=== PATIENT | male | born 1995 | race African-American/Black ===

== ENCOUNTER 2017-06-28 13:53 | Observation (INO) | payer OTHER ==
[~2017-06-28 13:53] MED LIST: LACTATED RINGER'S 1000 ML INJ 1,000 ML IV ONE; NEOSTIGMINE 3 MG/3 ML SYR IV ONE; ONDANSETRON HCL 4 MG/2 ML VIAL IV PUSH ONE; PROPOFOL 200 MG/20 ML AMP IV ONE; ePHEDrine/NS 25 MG/5 ML SYR IV ONE
[2017-06-28 13:55] VITALS: O2SAT 100
[2017-06-28] MEDS ORDERED: ceFAZolin 2 GM PREMIX 50 ML ONE (13:59)
[2017-06-28] MEDS ORDERED: DIPHTH/TETANUS/ACEL PERTUSSIS (BOOSTER) 0.5 ML VIAL/PFS IM ONE (13:59)
[2017-06-28] MEDS ORDERED: HYDROmorphone HCL PF 1 MG/ML VIAL IVP PRN (14:15)
[2017-06-28] MEDS ORDERED: SODIUM CHLORIDE 0.9% FLUSH 10 ML FLUSH IV FLUSH PRN ×2 (14:15→16:45)
[2017-06-28] MEDS ORDERED: ACETAMINOPHEN 325 MG TAB PO PRN (14:15)
[2017-06-28] MEDS ORDERED: ONDANSETRON HCL 4 MG/2 ML VIAL IV PRN (14:15)
[2017-06-28 14:23] LABS: AUTOMATED NEUTROPHIL # 3.2 TH/MM3 (1.8-7.7); BASOPHIL % 0.5 % (0.0-2.0); EOSINOPHIL # 0.1 TH/MM3 (0-0.4); EOSINOPHIL % 1.8 % (0.0-4.0); HEMATOCRIT 38.8 % (39.0-51.0); HEMO FLAGS DIFF FINAL; I-STAT POTASSIUM 3.4 MMOL/L (3.5-4.9); LYMPH % 32.5 % (9.0-44.0); LYMPHOCYTE # 1.8 TH/MM3 (1.0-4.8); MEAN CORPUSCULAR HEMOGLOBIN 21.8 PG (27.0-34.0); MEAN CORPUSCULAR HGB CONC 30.7 % (32.0-36.0); MONO % 9.1 % (0.0-8.0); NEUT % 56.1 % (16.0-70.0); PLATELET COUNT 124 TH/MM3 (150-450); RED BLOOD COUNT 5.46 MIL/MM3 (4.50-5.90); RED CELL DISTRIBUTION WIDTH 14.7 % (11.6-17.2); WHITE BLOOD COUNT 5.6 TH/MM3 (4.0-11.0)
[2017-06-28 14:32] LABS: APTT (PATIENT) 23.8 SEC (24.3-30.1); INTERNATIONAL NORMALIZED RATIO 1.1 RATIO
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
[2017-06-28] MEDS ORDERED: LIDOCAINE HCL 2% 50 ML VIAL ONE (15:23)
[2017-06-28] MEDS ORDERED: BUPIVACAINE HCL PF 0.5% 30 ML VIAL ONE (15:27)
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
[2017-06-28] MEDS ORDERED: BUPIVACAINE/EPINEPHRINE 0.5% 50 ML VIAL ONE (15:33)
[2017-06-28] MEDS ORDERED: FAMOTIDINE 20 MG/2 ML VIAL ONE (16:02)
[2017-06-28] MEDS ORDERED: NEOMYCIN/POLYMYXIN 1 ML G.U. IRRIGANT IRRIGATION ONE (16:34)
[2017-06-28] MEDS ORDERED: ENALAPRILAT 1.25 MG/ML VIAL IV PRN (16:45)
[2017-06-28] MEDS ORDERED: MAGNESIUM HYDROXIDE SUSP 30 ML CUP PO PRN (16:45)
[2017-06-28] MEDS ORDERED: fentaNYL CITRATE 250 MCG/5 ML AMP ONE (17:03)
[2017-06-28] MEDS ORDERED: MIDAZOLAM HCL 2 MG/2 ML VIAL ONE (17:03)
--- NOTE | 2017-06-28 17:36 | HHI.PR ---
Immediate Post Op Note Procedure Date: Jun 28, 2017 Pre Op Diagnosis: (1) Laceration of hand with complication (2) Laceration of hand with tendon involvement including fingers (3) Laceration of hand, complicated (4) Laceration of hand, left, complicated Post Op Diagnosis: Surgeon: Pedro Longoria III Saddle Lining Stitcher(s): Procedure: exploration left hand; 3rd FDP and FDS repairs; left 3rd UD nerve repair; left 3rd A1 vandana release repair left thenar muscle complex wound closure, 14cm Anesthesia: General, Local Drains: None Patient to: PACU Patient Condition: Good Pedro Longoria III, MD Jun 28, 2017 17:36
[2017-06-28] MEDS ORDERED: HYDROmorphone HCL PF 2 MG/ML VIAL ONE (17:48)
[2017-06-28] MEDS ORDERED: DO NOT ADM ANY ANTICOAGULANT DRUGS PRN (18:05)
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
[2017-06-28] MEDS ORDERED: ACETAMINOPHEN/HYDROcodone 325 MG/5 MG TAB PO PRN ×2 (19:45)
[2017-06-28] MEDS ORDERED: LACTATED RINGER'S 1000 ML INJ 1,000 ML IV SCH (20:00)
[2017-06-28] MEDS ORDERED: *morphine SULFATE 8 MG/ML PERIprocedure ONLY ONE (20:05)
[2017-06-28] MEDS: SODIUM CHLOR 0.9% 1000 ML INJ 1,000 ML IV SCH (20:51)
[2017-06-28] MEDS: FAMOTIDINE 20 MG TAB PO SCH (21:45)
[2017-06-28] MEDS: DOCUSATE SODIUM 50 MG/SENNA 8.6 MG TAB PO SCH (21:45)
[2017-06-29 01:00] VITALS: BP 157/76; PULSE 94; RESP 19; TEMP 98.6; O2SAT 95
[2017-06-29] MEDS: SODIUM CHLOR 0.9% 1000 ML INJ 1,000 ML IV SCH ×2 (01:28→03:31)
[2017-06-29 02:00] VITALS: BP 150/87
[2017-06-29 04:00] VITALS: BP 164/83; PULSE 65; RESP 20; TEMP 97.5; O2SAT 99
[2017-06-29 06:06] LABS: AUTOMATED NEUTROPHIL # 8.9 TH/MM3 (1.8-7.7); BASOPHIL % 0.1 % (0.0-2.0); LYMPH % 10.5 % (9.0-44.0); LYMPHOCYTE # 1.1 TH/MM3 (1.0-4.8); MEAN CELL VOLUME 70.4 FL (80.0-100.0); MEAN CORPUSCULAR HEMOGLOBIN 22.9 PG (27.0-34.0); MEAN CORPUSCULAR HGB CONC 32.6 % (32.0-36.0); MONO % 7.7 % (0.0-8.0); NEUT % 81.7 % (16.0-70.0); PLATELET COUNT 97 TH/MM3 (150-450); RED BLOOD COUNT 4.11 MIL/MM3 (4.50-5.90); WHITE BLOOD COUNT 10.8 TH/MM3 (4.0-11.0)
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
--- NOTE | 2017-06-29 06:36 | MP ---
cc: PEDRO ALCAZAR III, M.D. AKA: Olayinka Watts DATE OF OPERATION 06/28/2017 PREOPERATIVE DIAGNOSIS Laceration left hand with tendon and nerve involvement. PROCEDURE Left hand exploration with left third FDP tendon repair. 1. Left 3rd FDS tendon repair 2. Left third ulnar digital nerve repair. 3. Left third A1 vandana release. 4. Left hand complex wound closure 14-cm in length. SURGEON Pedro Alcazar III, MD PROCEDURE The patient was brought to the operative room, placed on the operating table after the correct site and side of surgery were verified by members of each team multiple times including the patient and myself. After adequate preoperative time-out was performed and after adequate general anesthesia had been achieved and Dr. De Souza was in charge of closing the chest wound, the left upper extremity was prepped and draped in traditional sterile surgical fashion. The limb was elevated for 1 minute and pressure was held to the artery, the axillary tourniquet was raised to 220 mmHg for proximally 1 hour and 20 minutes. Exploration and dissection revealed flexor tendons to the middle finger were transected at the level of the mid-palm as well as the ulnar digital nerve. The ulnar digital artery was intact. I was not able to find the proximal end of the flexor tendon so I made a small incision over the carpal tunnel and there it was identified and retracted into the wound. Thorough irrigation with a liter's worth of saline was performed. The FDP tendon was reapproximated in end-to-end fashion with a six core strand repair using 3-0 Prolene, for the four cores and then reinforced being with 4-0 Mersilene suture. The FDS tendon was then reapproximated with a four-core repair using 2-0 Prolene and 4-0 Mersilene. The proximal and distal ends of the ulnar digital nerve were identified proximally after the bifurcation and these were easily reapproximated precisely in an end-to-end fashion. The A1 vandana was then divided to prevent any impingement from the repair. The neurovascular bundles to this on either side of the middle finger were otherwise not even within the field of injury. The thenar muscle was then repaired using 3-0 Vicryl sutures and the fascia was precisely reapproximated to the different muscle bellies. The skin edges see were then reapproximated using interrupted 4-0 plain gut sutures in interrupted and running fashion with several bouts of irrigation throughout the whole case - 3 liters' worth altogether. Additional local anesthetic was infiltrated deep into the wound for postoperative pain control. The axillary tourniquet was released and the hand and all fingers became immediately soft, pink and warm with brisk capillary refill of 2 seconds. Adaptic dressing was applied on top of the wound followed by a bulky, soft dressing and then a dorsal blocking splint was made in the usual fashion. The patient was awakened from anesthesia and transported to the Post-Anesthesia Care Unit awake and in good condition at the end of the case. Sponge, needle and instrument counts were correct at the end of the case as reported by the nurses in the room. MD DOMINIC Carrasquillo III/SHIRA /5:38 PM /6:23 AM
[2017-06-29 06:38] LABS: HEMO FLAGS AUTO DIFF
[2017-06-29 07:18] LABS: KERATOCYTES OCC (NORMAL); OVALOCYTES 1+ (NORMAL); PLATELET ESTIMATE SMEAR LOW (NORMAL); PLATELET MORPHOLOGY NORMAL (NORMAL); SCAN/DIFF AUTO DIFF CONFIRMED
[2017-06-29] MEDS: FAMOTIDINE 20 MG TAB PO SCH (07:55)
[2017-06-29] MEDS: DOCUSATE SODIUM 50 MG/SENNA 8.6 MG TAB PO SCH (07:55)
[2017-06-29 08:00] VITALS: BP 139/76; PULSE 73; RESP 18; TEMP 97.3; O2SAT 100
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
[2017-06-29 12:00] VITALS: BP 127/74; PULSE 80; RESP 17; TEMP 97.9; O2SAT 100
[2017-06-29] MEDS ORDERED: NORC5TAB PO (12:50)
[2017-06-29] MEDS ORDERED: CEPH-460 PO (12:50)
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
== END 2017-06-29 16:15 | disposition home or self-care (01) ==
LOC: NEPI 13:53 → EDBD 14:54 → NEDA 14:54 → N07B 06-29 00:30
PROVIDERS: ADMIT Surgery; ATTEND Surgery
DX: S21.112A Laceration without foreign body of left front wall of thorax without penetration into thoracic cavity, initial encounter (principal); S64.493A Injury of digital nerve of left middle finger, initial encounter; S61.412A Laceration without foreign body of left hand, initial encounter; S66.123A Laceration of flexor muscle, fascia and tendon of left middle finger at wrist and hand level, initial encounter; X99.1XXA Assault by knife, initial encounter
CPT/HCPCS: 01810; 13101; 13102; 13132; 13133; 26055; 26356; 64831; 71010; 73120; 80048; 82435; 82565; 82947; 84132; 84295; 84520; 85025; 85610; 85730; 86850; 86900; 86901; 90715; 94150; 97166; G8987; G8988; J0690; J1170; J2250; J2270; J2405; J2710; J3010; J7030; J7120; 90471; 96374; 96375; G0378